=== PATIENT | female | born 1980 | race Hispanic/Latino ===

== ENCOUNTER 2022-01-08 19:28 | Emergency (ER) | payer SELFPAY ==
[2022-01-08] MEDS ORDERED: Ondansetron ODT 4 MG TAB ONE (20:14)
[2022-01-08] MEDS ORDERED: Ibuprofen 200 MG TAB ONE (20:14)
[2022-01-08] MEDS ORDERED: Oseltamivir 75 MG CAP ONE (20:53)
[2022-01-08] MEDS ORDERED: Oxymetazoline HCl 0.05% (30 ML BOT) ONE (21:04)
== END 2022-01-08 21:02 | disposition home or self-care (01) ==
LOC: NAV ERS 19:28
DX: J10.1 Influenza due to other identified influenza virus with other respiratory manifestations (principal); I10 Essential (primary) hypertension; R11.2 Nausea with vomiting, unspecified
CPT/HCPCS: 87804; 99284; Q0162; U0003; U0005